=== PATIENT | female | born 1975 | race Caucasian/White ===

== ENCOUNTER 2024-03-04 19:42 | Emergency (ER) | payer OTHER, SELFPAY ==
[2024-03-04 20:27] VITALS: BP 116/74
[2024-03-04 20:28] VITALS: BMI 19.7
[2024-03-04 20:43] LABS: % Basophils 0.2 % (0-2); % Eosinophils 0.6 % (0-6); % Immature Granulocytes 0.2 % (0-0.5); % Lymphocytes 18.6 % (20.5-51.1); % Monocytes 8.5 % (1.7-9.3); % Neutrophils 71.9 % (42.2-75.2); Absolute Eosinophils 0.1 10^3/uL (0-0.7); Absolute Lymphocytes 1.5 10^3/uL (1.2-3.4); Absolute Monocytes 0.7 10^3/uL (0.1-0.6); Mean Corp Hgb Conc. 33.3 g/dL (33.0-37.0); Mean Corpuscular Hgb 29.7 pg (27.0-31.0); Mean Corpuscular Volume 89.1 fL (81.0-99.0); Mean Platelet Volume 9.8 fL (7.4-10.4); Nucleated Red Blood Cells % 0 %; Platelet Count 204 10^3/uL (130-400); Red Blood Cell Count 4.04 10^6/uL (4.20-5.40); Red Cell Dist. Width 13.2 % (11.5-14.5); White Blood Cell Count 8.3 10^3/uL (4.8-10.8)
[2024-03-04 20:44] LABS: Urine Albumin Negative (Neg - Trace); Urine Bilirubin Negative (Negative); Urine Character Clear (Clear); Urine Color Straw; Urine Glucose Negative (Negative); Urine Ketone Negative (Negative); Urine Leukocyte Negative (Negative); Urine Nitrite Negative (Negative); Urine Occult Blood 4+ (Negative); Urine Urobilinogen Negative (Neg - 1+)
--- NOTE | 2024-03-04 20:50 | ED.GENMED ---
History of Present Illness
<Kwasi Singh DO - Last Filed: 03/04/24 21:59>
General
Chief Complaint: Abdominal Pain
Source: patient and spouse
Exam Limitations: none
Time Seen by Provider: 03/04/24 19:56
Nursing documentation reviewed up to this point in time: agreed with
Travel History
Have you had any contact with someone who has COVID-19?: No
Do you have any symptoms of coronavirus? Fever > 100 degrees, chills, cough, shortness of breath, sore throat, loss of taste or smell, muscle aches, or headache?: No
History of Present Illness
History of Present Illness:
48-year-old female perimenopausal, no menstrual cycle for 80 days presents with lower abdominal pain for about 2 days not much of an appetite no fevers, normal bowel movements, 2 gynecologic surgeries-ectopic and molar , still has her
appendix, never had a colonoscopy, mother has a history of diverticulitis social drinker not excess non-smoker
Past History
<Kwasi Singh, - Last Filed: 03/04/24 21:59>
Past History
ED Past Medical History: Other (Rare UTIs.)
ED Past Surgical History: Gynecological (D and C for molar , ectopic .); Negative Appendectomy or Cholecystectomy
Social History
Tobacco: Non-smoker
Alcohol: None
Drug: None
Personal:
Living: with family
Employment: Not employed
Family History
Family History: Other (Noncontributory)
Review of Systems
<Kwasi Singh DO - Last Filed: 03/04/24 21:59>
Review of Systems
All Other Systems: Not applicable
Constitutional: Denies fever or fatigue
EENT: Reports no symptoms
Respiratory: Reports no symptoms
Cardiac: Reports no symptoms
ABD/GI: Reports abdominal pain, nausea and anorexia
: Reports no symptoms
Musculoskeletal: Reports no symptoms
Skin: Reports no symptoms
Neurological: Reports no symptoms
Phy Exam
<Kwasi Singh, DO - Last Filed: 03/04/24 21:59>
Physical Exam
Physical Exam:
Physical Exam
General: no apparent distress, not acutely ill
Neck: No jaundice
Heart: Regular
Lungs: no acute respiratory distress. clear bilaterally
Abdomen: Tender in the left and right lower abdomen
Neuro: alert and oriented. no focal neurological deficits
Skin: no rash
Psychiatric: well kept. interactive and cooperative
Extremities: no edema.
Course
<Kwasi Singh, DO - Last Filed: 03/04/24 21:59>
Orders/Labs/Results
Orders:
Orders
03/04/24 20:30
IV Insert/Care/Rem.- Treatment PRN
Test Result ONCE
03/04/24 20:34
Complete Blood Count/With Diff Urgent
Comprehensive Metabolic Panel Urgent
HCG, Serum Qualitative Screen Urgent
Lipase Urgent
Urinalysis Reflex To Culture Urgent
Date Specimen was Collected: 03/04/24
Time Specimen was Collected: 20:30
Urine Microscopic Reflex Cult Urgent
03/04/24 20:40
Iohexol [Omnipaque] See Protocol PO NOW STA
03/04/24 20:41
CT Abd/pel W Iv And Oral Contr Urgent
Comment:
Reason For Exam: lower abd pain
0.9% Sodium Chloride 1000 ml [Nss] 1,000 ml IV BOLUS
HYDROmorphone [Dilaudid] 0.5 mg IV NOW STA
Ketorolac [Toradol] 30 mg IV NOW STA
Ondansetron Injectable [Zofran] 4 mg IV NOW STA
03/04/24 23:59
Amoxicillin 875 mg/Clav 125 mg [Augmentin 875 mg/125 mg] 1 tablet PO NOW STA
Abnormal Lab Results
03/04/24
20:34
RBC 4.04 L 10^6/uL
(4.20-5.40)
Hct 36.0 L %
(37.0-47.0)
Absolute Monos (auto) 0.7 H 10^3/uL
(0.1-0.6)
Lymphocytes % 18.6 L %
(20.5-51.1)
Ur Occult Blood Reflex 4+ A
(Negative)
Urine RBC 3-6 A /HPF
(0-2)
Urine Bacteria (Reflex) Few A
(Negative)
03/04/24 20:34
03/04/24 20:34
Vital Signs
Initial and Last Documented VS:
Initial Vital Signs
Temp Pulse Resp Pulse Ox
98.8 F 89 16 100
03/04/24 19:47 03/04/24 19:47 03/04/24 19:47 03/04/24 19:47
Last Documented Vital Signs
Temp Pulse Resp BP Pulse Ox
98.8 F 89 16 95/63 94
03/04/24 19:47 03/04/24 19:47 03/04/24 19:47 03/05/24 00:00 03/05/24 00:00
<Saud Veras PA-C - Last Filed: 03/05/24 00:26>
Orders/Labs/Results
Orders:
Orders
03/04/24 20:30
IV Insert/Care/Rem.- Treatment PRN
Test Result ONCE
03/04/24 20:34
Complete Blood Count/With Diff Urgent
Comprehensive Metabolic Panel Urgent
HCG, Serum Qualitative Screen Urgent
Lipase Urgent
Urinalysis Reflex To Culture Urgent
Date Specimen was Collected: 03/04/24
Time Specimen was Collected: 20:30
Urine Microscopic Reflex Cult Urgent
03/04/24 20:40
Iohexol [Omnipaque] See Protocol PO NOW STA
03/04/24 20:41
CT Abd/pel W Iv And Oral Contr Urgent
Comment:
Reason For Exam: lower abd pain
0.9% Sodium Chloride 1000 ml [Nss] 1,000 ml IV BOLUS
HYDROmorphone [Dilaudid] 0.5 mg IV NOW STA
Ketorolac [Toradol] 30 mg IV NOW STA
Ondansetron Injectable [Zofran] 4 mg IV NOW STA
03/04/24 23:59
Amoxicillin 875 mg/Clav 125 mg [Augmentin 875 mg/125 mg] 1 tablet PO NOW STA
Abnormal Lab Results
03/04/24
20:34
RBC 4.04 L 10^6/uL
(4.20-5.40)
Hct 36.0 L %
(37.0-47.0)
Absolute Monos (auto) 0.7 H 10^3/uL
(0.1-0.6)
Lymphocytes % 18.6 L %
(20.5-51.1)
Ur Occult Blood Reflex 4+ A
(Negative)
Urine RBC 3-6 A /HPF
(0-2)
Urine Bacteria (Reflex) Few A
(Negative)
03/04/24 20:34
03/04/24 20:34
Vital Signs
Initial and Last Documented VS:
Initial Vital Signs
Temp Pulse Resp Pulse Ox
98.8 F 89 16 100
03/04/24 19:47 03/04/24 19:47 03/04/24 19:47 03/04/24 19:47
Last Documented Vital Signs
Temp Pulse Resp BP Pulse Ox
98.8 F 89 16 95/63 94
03/04/24 19:47 03/04/24 19:47 03/04/24 19:47 03/05/24 00:00 03/05/24 00:00
<Kwasi Singh DO - Last Filed: 03/04/24 21:59>
MDM/Problems Addressed
Differential Diagnosis Includes:
Diverticulitis appendicitis less likely ectopic or urinary pathology
MDM/Problems Addressed:
Abdominal pain
Chronic conditions affecting care: Previous abdomnial surgery
Acute Exacerbation and/or Progression of Chronic Illness: Previous abdomnial surgery
<Kwasi Singh DO - Last Filed: 03/04/24 21:59>
*Radiology
Radiology exam reviewed: preliminary read by ED provider
*Pulse Oximetry
Patient hypoxic: no
*Critical Care Note
Total Time (30-74mins, 75-104mins- exclusive of procedures): Not Applicable
<Saud Veras PA-C - Last Filed: 03/05/24 00:26>
*Radiology
Radiology exam reviewed: radiology read reviewed
<Saud Veras PA-C - Last Filed: 03/05/24 00:26>
Patient Management
Escalation/DeEscalation of care consider admission/obs:
Patient CT scan shows moderate to severe diverticulitis. No evidence for abscess or perforation. Patient is afebrile, tolerating secretions and feels comfortable to be discharged home. Will treat with dose of Augmentin. Prescription sent to
pharmacy. Information for GI provided. Aware of return precautions but otherwise stable for discharge home.
<Kwasi Singh DO - Last Filed: 03/04/24 21:59>
Update Note
Update Note:
10 PM labs noted patient tolerating her prep well CT is pending
ED Attending Note
<Kwasi Singh DO - Last Filed: 03/04/24 21:59>
-
Portions of this chart may have been created with voice recognition software.� Occasional wrong word or��sound alike� substitutions may have occurred due to the inherent limitations of voice recognition software.
Discharge Plan
Departure
Patient Disposition: Home (Routine Discharge)
Date of Disposition: 03/05/24
Time of Disposition: 00:00
Patient with high blood pressure during this ER visit?: No
Discharge Problem:
Diverticulitis
Instructions: Diverticulitis (DC)
Prescriptions:
New
amoxicillin-pot clavulanate 875-125 mg tablet
1 tab PO BID Qty: 19 0RF
No Action
sulfamethoxazole-trimethoprim 1 TABLET tablet
1 tab PO BID 10 Days Qty: 20 0RF
ibuprofen 600 MG tablet
600 mg PO QIDPRN PRN (Reason: moderate pain, take with food) Qty: 30 0RF
Referrals:
Susanna Lucero MD [Active] - (GI)
UNKNOWN - PT DOES,NOT KNOW [Family Provider] -
Interventions
Interventions:
*Risk Screen - Suicide Last Done: 03/04/24 19:47
*General Assessment Last Done: 03/04/24 19:47
*Neglect/Abuse Screening Last Done: 03/04/24 19:47
ED- Fall Risk Assessment Last Done: 03/04/24 22:00
*ED COVID-19 Vaccine History Last Done: 03/04/24 20:28
*Nursing Disposition Last Done: 03/05/24 00:15
MY-Zgaaru-Vrkqmrevoi Assessment Last Done: 03/04/24 22:00
Discharge Date and Time
Discharge Date/Time: 03/05/24 00:22
Print Language: [place]
[2024-03-04 20:52] LABS: HCG, Serum Qualitative Screen Negative
[2024-03-04] MEDS: NSS 1000 IV (20:53)
[2024-03-04] MEDS: DILAUDID 0.5 MG IV (20:53)
[2024-03-04 20:54] LABS: Urine Bacteria Few (Negative); Urine Squamous Cell 26-30 /LPF (Few)
[2024-03-04] MEDS: ZOFRAN 4 MG IV (20:54)
[2024-03-04] MEDS: TORADOL 30 MG IV (20:54)
[2024-03-04] MEDS: OMNIPAQUE 50 ML PO (20:54)
[2024-03-04 20:56] LABS: ALT (SGPT) 12 U/L (0-35); AST (SGOT) 21 U/L (14-36); Albumin 4.1 g/dl (3.5-5.0); Blood Urea Nitrogen 14 mg/dl (7-17); Carbon Dioxide 29 mmol/L (22-30); Estimated Creatinine Clearance 92 ml/min; Glucose 94 mg/dl (70-99); Potassium 3.6 mmol/L (3.5-5.1); Total Bilirubin 0.5 mg/dl (0.2-1.3); Total Protein 6.9 g/dl (6.3-8.2); eGFR > 60.00
[2024-03-04 20:57] LABS: Lipase 122 U/L (23-300)
[2024-03-04 21:00] VITALS: BP 107/77
[2024-03-04 21:22] LABS: Alkaline Phosphatase 53 U/L (38-126)
[2024-03-04 21:30] LABS: Chloride 102 mmol/L (98-107); Sodium 139 mmol/L (135-145)
[2024-03-04 22:00] VITALS: BP 84/57
[2024-03-04 23:13] VITALS: BP 94/67
[2024-03-05] VITALS: BP 95/63
[2024-03-05] MEDS: AUGMENTIN 875 MG/125 MG 1 TABLET PO (00:03)
== END 2024-03-05 00:22 | disposition home or self-care (01) ==
LOC: EMR 19:42
PROVIDERS: EMERGENCY PHYSICIAN Emergency Medicine
DX: K57.32 Diverticulitis of large intestine without perforation or abscess without bleeding (principal)
CPT/HCPCS: 99285; 96374; 96375 ×2; 96361; 74177; 80053; 81003; 81015; 83690; 84703; 85025; Q9967